=== PATIENT | male | born 1985 | race Caucasian/White ===

== ENCOUNTER 2016-10-19 17:28 | Emergency (ER) | payer OTHER ==
[~2016-10-19] VITALS: Ht 185.4 cm; Wt 136.4 kg
[2016-10-19 17:48] VITALS: BP 157/100; PULSE 112; RESP 12; O2SAT 97
[2016-10-19] MEDS ORDERED: CYCL10TA9 PO (17:53)
[2016-10-19] MEDS ORDERED: IBUP800T28 PO (17:53)
--- NOTE | 2016-10-19 20:56 | ED.REPORT ---
HPI-Extremity Problem Lower Date of Service Oct 19, 2016 ED Provider: Orestes López PA-C Michael is a 31-year-old male present with chief complaint of pain in his right thigh. He describes shooting pains from his right hip to his knee, and that the skin of his lateral thigh is very sensitive. He can recall no trauma. Denies back pain. States his pain is aggravated by a long weekend spent working for the [email or web address]. He reports he has had these pains for approximately 5 years, and they have been assessed by neurology with nerve conduction studies. Cannot relate the results of the studies. Patient states he is taking up with a new primary care provider, Dr. Murguia that we cannot recall the first name. States that his previous provider was not helping him. States that he has been helped by amitriptyline, cyclobenzaprine, OxyContin. He is out of these medications. Nursing Notes Stated Complaint: PAIN IN RIGHT LEG Chief Complaint: Extremity Trauma Nursing Notes Reviewed: Yes Allergies: Coded Allergies: No Known Allergies (Unverified , 10/19/16) Scheduled PRN Cyclobenzaprine (Cyclobenzaprine) 10 Mg Tablet 10 MG PO TID PRN PRN Spasm Ibuprofen (Ibuprofen) 800 Mg Tablet 800 MG PO TID PRN PRN For Pain General Time Seen by MD: 19:56 Chief Complaint Thigh injury right Past Medical History Past Medical History Denies Review of Systems Review of Systems Note: Negative unless stated otherwise in history of present illness Physical Exam General: Well appearing, well developed, well nourished, no acute distress. Right hip: Full range of motion, tender. Right thigh: Normal to inspection, tender laterally. Right knee: Normal to inspection, nontender, full range of motion Foot/ankle: Normal to inspection, nontender, full range of motion. DP and PT pulses 2+. Head: Atraumatic, normocephalic. Eyes: No scleral icterus or injection. No discharge. Vision grossly intact. ENT: Voice clear, hearing grossly intact. Respiratory: No respiratory distress, no increased work of breathing. Speaks in complete sentences. Skin: Warm and dry. Neurological: Grossly nonfocal. Psychological: alert and oriented. Speech appropriate, linear and logical. Behavior appropriate. Initial Vital Signs Vital Signs (First) Date Time Temp Pulse Resp B/P Pulse Ox O2 Delivery O2 Flow Rate FiO2 10/19/16 17:48 37.7 112 12 157/100 97 Tachycardia, elevated blood pressure. Re-Eval/Medical Decision Med Decision/Clinical Course 31-year-old male with chronic right leg pain presenting for same. Reports recently aggravated by a stint of working for the [email or web address]. Complains of shooting pains from his hip to his knee, denies back pain, red flag symptoms for cauda equina. Physical examination he has an antalgic gait favoring the left side. Legs normal to inspection, tender at the hip and lateral thigh. Full range of motion intact. Neurovascularly intact distal. I am unsure what is causing his pain but I am confident it is not an emergent condition such as cauda equina, abscess, epidural hematoma, septic arthritis, avascular necrosis, fracture. I felt this was obviously drug-seeking behavior initially, but I do feel the patient is genuinely frustrated with the situation. He is pleasant and amenable to alternative treatments, understanding when it is explained that I cannot refill his chronic pain medications. Pain is treated with ketorolac, acetaminophen in the emergency Department. Advised ibuprofen and acetaminophen at home, primary care follow-up advising a conversation regarding physical therapy. Provide emergent return precautions. Patient verbalizes understanding of and consent to the plan. Discharge & Departure Impression: Primary Impression: Leg pain, lateral Laterality: right Qualified Code: M79.604 - Pain in right leg Disposition: Home Discharge Condition All VS Reviewed: Yes Condition: Stable Additional Instructions: Evaluation for leg pain in the emergency department consists of history and physical examination, both of which are reassuring that this is unlikely to be due to and immediately dangerous condition. I am sorry this is been such a struggle for you. The pain is best treated with 800 mg of ibuprofen (Advil, Motrin) every 6 hours , or 1000 mg of acetaminophen (Tylenol) every 6 hours. These drugs can be taken at the same time for more severe pain. DO NOT take more than this. You will do damage to the kidneys and liver. Follow-up with Dr. Murguia as soon as you can. Unfortunately, without his first name I will not be able to send him this note. Call tomorrow and ask about cancellations to try to be seen. Return to emergency department for new or worsening symptoms including numbness between your legs, loss of bowel/bladder function. Referrals: NOPCP (PCP) EDSupervising Provider for APC: Tobi Torre Seth PA-C Oct 19, 2016 20:56
== END 2016-10-19 21:17 | disposition home or self-care (01) ==
LOC: SED 17:28
DX: M79.604 Pain in right leg (principal)
CPT/HCPCS: 96372; 99283; J1885

== ENCOUNTER 2016-12-23 22:56 | Emergency (ER) | payer OTHER ==
[~2016-12-23 22:56] MED LIST: CYCL10TA9 PO; IBUP800T28 PO
[2016-12-23 23:00] VITALS: BP 137/72; PULSE 111; RESP 16; O2SAT 98
--- NOTE | 2016-12-23 23:30 | ED.REPORT ---
HPI-Back Pain Under 40 Date of Service Dec 23, 2016 ED Provider: Tobi Torre DO This a very pleasant 31-year-old male who complains of pain in his right low back radiating down his right leg. Evidently he has a history of a herniated disc at L5-S1. 2 weeks ago he received an injection in this did not seem to help but he was doing alright. A few days ago he did a hot wing ingestion challenge. The wings made nothing by mouth. Just after puking he started rather severe back pain rating down his right leg. Sometimes pain is so severe that it feels like his leg is going to give out. He has never had any true motor weakness. He has chronic decreased sensation over the lateral aspect of his thigh. This is what prompted the initial MRI. Aside from pain there are no new neurologic complaints. No loss of bowel or bladder control. No urine retention. Nursing Notes Stated Complaint: BACK PAIN Chief Complaint: Back Pain or Injury Nursing Notes Reviewed: Yes Allergies: Coded Allergies: No Known Allergies (Unverified , 10/19/16) Scheduled PRN Cyclobenzaprine (Cyclobenzaprine) 10 Mg Tablet 10 MG PO TID PRN PRN Spasm Ibuprofen (Ibuprofen) 800 Mg Tablet 800 MG PO TID PRN PRN For Pain General Time Seen by MD: 23:29 Chief Complaint Back pain Hx Obtained From: Patient Arrived By: Walk-in Sudden in Onset?: Yes Onset Occurred: 2 days ago Symptom Duration: Since onset Location: : Generalized Quality: Painful Radiation: : Does not radiate Severity: Current: Moderate Severity: Maximum: Moderate Recent Healthcare: Recent doctor visit Similar Sx Previous: Yes Risk Factors TAD Risk Stratification Risk factors reviewed Epidural Hematoma Risk Stratif No Blood thinners, No Coagulation disorder, No Recent epidural injection (2 weeks ago.) Risk factors reviewed Epidural Abscess Risk Stratifi No Diabetes mellitus, No IV drug use, No Immune compromise Risk factors reviewed, No risk factors Past Medical History Past Medical History Back pain - ROBINA injection - disc retropulsion Past Surgical History Denies Smoking History Unknown if Ever Smoker Social History Alcohol Use: "Social" Drug Use: Denies drug use Other Social History: Good social support, , Lives with children Ambulatory Status Independent Review of Systems Denies urinary retention Constitutional: Denies: Fever Male: Denies Incontinence Musculoskeletal: Reports: Back pain, Extremity pain Neurologic: Denies: Bladder dysfunction, Numbness (between legs) Complete sys rev & neg: except as marked. Physical Exam Initial Vital Signs Vital Signs (First) Date Time Temp Pulse Resp B/P Pulse Ox O2 Delivery O2 Flow Rate FiO2 12/23/16 23:00 37.5 111 16 137/72 98 Room Air Initial VS: Reviewed Head / Eyes: Atraumatic, Normocephalic Neck: Supple, Full range of motion Respiratory: Breath sounds normal, Clear to auscultation, No respiratory distress Cardiovascular: Regular rate & rhythm, Heart sounds normal, Intact distal pulses Abdomen / GI: Soft, Non-tender Extremities: Vascular intact, Neuro intact Skin: Warm, Dry, No cyanosis Psychiatric: Mood/affect normal, Behavior normal General/Constitutional: Awake, Alert Back: Full range of motion, Non-tender No signs of infection. No weakness or cord syndrome. No myelopathy. Emergent MRI felt not to be indicated at this time. Neurologic: Oriented X3, Speech NL, No motor deficits, No sensory deficits, CN II - XII intact, Reflexes equal bilat, Cerebellar NL, Memory NL, Gait NL Re-Eval/Medical Decision Med Decision/Clinical Course No signs of a myelopathy or cord syndrome. No palpable tenderness in his back. Symptoms are consistent with a lumbar radiculopathy. No signs or symptoms of an epidural abscess or epidural hemorrhage. His injection was 2 weeks out so I doubt highly that this could lead to hemorrhage today. We discussed MRI. We discussed labs. Mr. Knowles would like some pain relief and see how he does. He was given an injection of Toradol and he felt better. He was discharged with a short course of Percocet for pain. The following caveat: He is to return tomorrow if the pain has not decreased significantly or if he develops any numbness, weakness or paresthesias. I did tell him that we should do an MRI if any of these symptoms occur. Currently does not feel like emergent neuro imaging is indicated. He will follow up closely. Routine opiate and back pain warnings given Source of Hx: Old records Re-Evaluation/Progress : Time of Eval: 23:43 Re-Evaluation/Progress Note: Informed pt of plan for treatment and discharge. Pt understands and agrees with plan for treatment and discharge. F/U instructions and RTER warnings given. All questions addressed. Counseled Regarding: Diagnosis, Need for follow-up, When/why to return to ED Discharge & Departure Impression: Primary Impression: Lumbar radiculopathy Disposition: Home All VS Reviewed: Yes Condition: Stable Patient Instructions: Lumbar Radiculopathy (ED) Additional Instructions: Rest your back tonight. Call your primary care provider on Monday for a follow up appointment next week. Take 1-2 Percocet every 6 hours as needed. Do not drive or drink alcohol or consume acetaminophen while taking Percocet. Return to the Emergency Department for an MRI as we discussed if you developed fever, weakness, loss of bowel or bladder control, or urinary retention. Referrals: Alli Murguia (PCP) [place] Attestation Portions of this note were transcribed by Cherie Dill. I, Dr. Torre personally performed the history, physical exam and medical decision-making; I reviewed and confirmed the accuracy of the information in the transcribed note. Signed by : Robert Stoner, 12/23/16. copies to: OTHER,PHYSICIAN Tobi Torre DO Dec 23, 2016 23:30 Cherie No Dec 23, 2016 23:41
[2016-12-23] MEDS ORDERED: _oxyCODONE/APAP 5-325 mg Tablet PO PRN (23:45)
[2016-12-24 00:36] VITALS: BP 135/97; PULSE 107; RESP 18; O2SAT 96
== END 2016-12-24 00:39 | disposition home or self-care (01) ==
LOC: SED 22:56
DX: M54.16 Radiculopathy, lumbar region (principal)
CPT/HCPCS: 96372; 99283; J1885

== ENCOUNTER 2016-12-27 20:24 | Emergency (ER) | payer OTHER ==
[~2016-12-27] VITALS: Ht 185.4 cm; Wt 135.4 kg
[2016-12-27 20:50] VITALS: BP 140/95; PULSE 94; RESP 16; O2SAT 97
--- NOTE | 2016-12-27 21:09 | ED.REPORT ---
HPI-Back Pain Under 40 Date of Service Dec 27, 2016 ED Provider: Ranjan Reinoso DO Pt is a 31 y/o male with a herniated L5-S1 disc who presents to the ED c/o right -leg weakness onset today. Additional symptoms include pain in right knee joint and a headache. He denies fever, abdominal pain, neck pain, bowel or bladder incontinence, or any other symptoms. Pt was seen in the ED on 12/24/16 for similar symptoms, and was told to come in for leg weakness which is why he is here today. He had an ROBINA injection for his herniated disc that improved his symptoms. On 12/19/16, he vomited twice which made his back pain return and prompted a visit to the ED. Nursing Notes Stated Complaint: BACK PAIN Chief Complaint: Back Pain or Injury Nursing Notes Reviewed: Yes Allergies: Coded Allergies: No Known Allergies (Unverified , 10/19/16) Scheduled PRN Cyclobenzaprine (Cyclobenzaprine) 10 Mg Tablet 10 MG PO TID PRN PRN Spasm Ibuprofen (Ibuprofen) 800 Mg Tablet 800 MG PO TID PRN PRN For Pain General Time Seen by MD: 21:08 Chief Complaint Back pain Hx Obtained From: Patient Arrived By: Walk-in Sudden in Onset?: No Location: : Spinal lumbar area Quality: Painful Severity: Current: Moderate Severity: Maximum: Severe Recent Healthcare: Recent doctor visit Similar Sx Previous: Yes Past Medical History Past Medical History Back pain - ROBINA injection - disc retropulsion Sleep apnea Past Surgical History Denies Smoking History Current Every Day Smoker, Unknown if Ever Smoker Social History Alcohol Use: Denies alcohol use Drug Use: Denies drug use Other Social History: Good social support, , Lives with children Ambulatory Status Independent Review of Systems Right-leg weakness Constitutional: Denies: Fever GI: Denies: Abdominal pain Male: Denies Incontinence Musculoskeletal: Reports: Back pain, Denies: Neck pain Neurologic: Reports: Headache Complete sys rev & neg: except as marked. Physical Exam Initial Vital Signs Vital Signs (First) Date Time Temp Pulse Resp B/P Pulse Ox O2 Delivery O2 Flow Rate FiO2 12/27/16 20:50 36.9 94 16 140/95 97 Room Air Initial VS: Reviewed Head / Eyes: Atraumatic, Normocephalic Neck: Supple, Full range of motion Abdomen / GI: Soft, Non-tender Skin: Warm, Dry, No cyanosis Psychiatric: Mood/affect normal, Behavior normal, Normal thought content General/Constitutional: Awake, Alert Back: Tenderness at L SI joint L5-S1 allodynia No ecchymosis Neurologic: Oriented X3, Speech NL Negative straight-raise leg test bilaterally Bilateral lower extremity strength is 5 out of 5 Lower Extremity / Pelvis / MS: Neurologic intact, Vascular intact Lateral R thigh numbness, baseline Re-Eval/Medical Decision Med Decision/Clinical Course Patient has a normal neurologic exam other than the subjective numbness. I had a long discussion today about the appropriateness of an MRI emergently, and that this does not meet the criteria. I offered gabapentin or Lyrica, and also muscle relaxers, but the patient has tried them all and they do not work. He has a PCP and has access to physical therapy, as well as ROBINA. I gave him a small amount of Percocet 5/325, #10 tablets and advised him to use them sparingly. No red flags identified on exam or by history today. Patient understands and agrees with plan Source of Hx: Old records Re-Evaluation/Progress : Time of Eval: 21:54 Re-Evaluation/Progress Note: Discussed plan for discharge. Patient understands and agrees with plan. F/U instructions and RTER warnings given. All questions addressed at this time. Counseled Regarding: Diagnosis, Lab results, Need for follow-up, When/why to return to ED Discharge & Departure Impression: Primary Impression: Low back pain Chronicity: acute Back pain laterality: right Sciatica presence: with sciatica Sciatica laterality: sciatica of right side Qualified Code: M54.41 - Lumbago with sciatica, right side Additional Impression: Sacroiliac strain Encounter type: initial encounter Qualified Code: S39.012A - Strain of muscle, fascia and tendon of lower back, initial encounter Disposition: Home All VS Reviewed: Yes Condition: Stable Additional Instructions: Thank you for entrusting us with your medical care today. Your emergency department evaluation today including interview and examination was reassuring. I do not think an emergent MRI is needed at this time. Take ibuprofen 800 mg 3 times daily for baseline pain and use Percocet sparingly for breakthrough pain. Please call your primary care physician tomorrow in order to schedule a follow- up appointment for a recheck. Please return to the emergency department for any new or worsening conditions, including any fever, weakness, loss of bowel or bladder control, or urinary retention. Referrals: Alli Murguia MD (PCP) Scribe Attestation Portions of this note were transcribed by Michelle Caputo. I, Dr. Samson, personally performed the history, physical exam and medical decision-making; I reviewed and confirmed the accuracy of the information in the transcribed note. copies to: Alli Murguia MD, Gary R DO Dec 27, 2016 21:09 Michelle Caputo Dec 27, 2016 21:33
[2016-12-27] MEDS ORDERED: _oxyCODONE/APAP 5-325 mg Tablet PO PRN (21:50)
== END 2016-12-27 22:03 | disposition home or self-care (01) ==
LOC: SED 20:24
DX: M54.41 Lumbago with sciatica, right side (principal); S39.012A Strain of muscle, fascia and tendon of lower back, initial encounter; Y93.9 Activity, unspecified; Y92.9 Unspecified place or not applicable; Y99.8 Other external cause status; F17.200 Nicotine dependence, unspecified, uncomplicated; X58.XXXA Exposure to other specified factors, initial encounter